=== PATIENT | female | born 1960 | race Caucasian/White ===

== ENCOUNTER 2017-11-21 07:30 | Day surgery (SDC) | payer BC, OTHER ==
[~2017-11-21 07:30] MED LIST: Lactated Ringers 1,000 ML IV SCH; Midazolam 1 MG/ML 2 ML SDV ONE; Propofol 200 MG/20 ML SDV ONE; Sodium Chloride 0.9% 10 ML Syringe FLUSH PRN; fentaNYL 100 MCG/2 ML SDV ONE
[2017-11-21] MEDS ORDERED: fentaNYL 100 MCG/2 ML SDV ONE (08:19)
[2017-11-21] MEDS ORDERED: Midazolam 1 MG/ML 2 ML SDV ONE (08:19)
[2017-11-21] MEDS ORDERED: Propofol 200 MG/20 ML SDV ONE (08:19)
--- NOTE | 2017-11-21 08:20 | PCM.HPR ---
H & P Addendum review - H & P Addendum Review Date of Original H & P: 11/07/17 Date Reviewed: 11/21/17 Time Reviewed: 08:05 Patient was Examined: No Changes
--- NOTE | 2017-11-21 08:51 | PCM.OPNOTE ---
- General Post-Op/Procedure Note Date of Surgery/Procedure: 11/21/17 Operative Procedure(s): Colonoscopy with polypectomy Findings: polyps Pre Op Diagnosis: FH Colon Polyps Post-Op Diagnosis: Same Anesthesia Technique: MAC Primary Surgeon: Aravind Ortiz Anesthesia Provider: Fidelina Medeiros Pathology: polyps Complications: None Condition: Good Free Text/Narrative:: Intake & Output 11/20/17 11/21/17 11/21/17 22:59 06:59 14:59 Intake Total 500 Balance 500
[2017-11-21 09:24] VITALS: BP 126/74
--- NOTE | 2017-11-21 12:12 | OR ---
Date of Procedure: 11/21/2017 PREOPERATIVE DIAGNOSIS: Family history of colon polyps. POSTOPERATIVE DIAGNOSIS: Colon and rectal polyps. PROCEDURE: Colonoscopy with polypectomy. ANESTHESIA: IV sedation. PROCEDURE: The patient was brought to the procedure room where she was placed on her left side and IV sedation administered. Digital rectal exam was performed which was normal. Colonoscope was inserted and advanced to the level of the cecum without difficulty. Cecal position was confirmed by identifying the appendiceal lumen and ileocecal valve. Prep was good and surfaces were well visualized. Upon withdrawing the scope, the ascending, transverse, and descending colon were normal in appearance. In the sigmoid colon at 30 cm, was an 8 mm pedunculated polyp removed with a cautery snare and retrieved in the polyp trap. In the rectum at 10 cm with a 10 mm sessile polyp that was also removed with a cautery snare and retrieved in the polyp trap. Retroflexion was normal. Air was removed and the scope withdrawn. The patient tolerated the procedure well and returned to recovery in stable condition. I will have the patient followup next week for review of pathology report. Polyps are obviously adenomatous and would recommend that she undergo a repeat colonoscopy again in 3 years. RALPH PHIPPS MD /[id number]
== END 2017-11-21 10:21 | disposition home or self-care (01) ==
LOC: LL.SDS 07:30
PROVIDERS: ATTEND Surgery
DX: Z12.11 Encounter for screening for malignant neoplasm of colon (principal); D12.5 Benign neoplasm of sigmoid colon; D12.8 Benign neoplasm of rectum; M47.896 Other spondylosis, lumbar region; E89.0 Postprocedural hypothyroidism; E66.9 Obesity, unspecified; Z68.41 Body mass index [BMI] 40.0-44.9, adult; F41.9 Anxiety disorder, unspecified; F32.9 Major depressive disorder, single episode, unspecified; Z79.899 Other long term (current) drug therapy; Z90.710 Acquired absence of both cervix and uterus; Z98.890 Other specified postprocedural states; Z87.891 Personal history of nicotine dependence; Z83.71 Family history of colonic polyps
CPT/HCPCS: 45385; J2250; J2704; J3010; J7120

== ENCOUNTER 2019-08-20 18:42 | Emergency (ER) | payer OTHER ==
[2019-08-20 18:55] VITALS: BP 115/84; PULSE 77
--- NOTE | 2019-08-20 19:38 | EDM.PDOC ---
ED HPI GENERAL MEDICAL PROBLEM - General Chief Complaint: Upper Extremity Injury/Pain Stated Complaint: right arm pain Time Seen by Provider: 08/20/19 19:10 Source of Information: Reports: Patient History Limitations: Reports: No Limitations - History of Present Illness INITIAL COMMENTS - FREE TEXT/NARRATIVE: Slipped and fell on the ice Landed on right wrist Pain and deformity in wrist Duration: Hour(s): Location: Reports: Upper Extremity, Right Quality: Reports: Throbbing Severity: Moderate Improves with: Reports: Immobilization Worsens with: Reports: Movement Context: Reports: Trauma Right Arm Pain Score (Numeric/FACES): 8 - Related Data Allergies Allergy/AdvReac Type Severity Reaction Status Date / Time No Known Allergies Allergy Verified 11/21/17 07:25 Home Meds: Home Meds Levothyroxine 125 mcg PO SA 04/20/16 [History] Sertraline [Zoloft] 100 mg PO BEDTIME 04/20/16 [History] Calcium Carb, Citrate/Vit D3 [Citracal + D ER] 1 tab PO DAILY 11/20/17 [History] Desoximetasone [Topicort 0.25% Crm] 15 gm TOP BID PRN 11/20/17 [History] Levothyroxine 112 mcg PO SUMOTUWETHFR 11/20/17 [History] Past Medical History HEENT History: Reports: None Cardiovascular History: Reports: None Respiratory History: Reports: None Gastrointestinal History: Reports: None Genitourinary History: Reports: None DIRECTOR NICU History: Reports: Other (See Below) Other DIRECTOR NICU History: Hystorectomy, LEEP, TUR BLADDER TUMOR Musculoskeletal History: Reports: Other (See Below) Other Musculoskeletal History: Degenerative Arthritis of the Lumbar spine Neurological History: Reports: None Psychiatric History: Reports: Anxiety Endocrine/Metabolic History: Reports: Other (See Below) Other Endocrine/Metabolic History: Goiter, Thyroid Nodules Hematologic History: Reports: None Immunologic History: Reports: None Oncologic (Cancer) History: Reports: Thyroid Dermatologic History: Reports: None - Past Surgical History Endocrine Surgical History: Reports: Thyroidectomy Social & Family History - Tobacco Use Smoking Status *Q: Never Smoker Second Hand Smoke Exposure: No - Caffeine Use Caffeine Use: Reports: None Caffeine Use Comment: Has coffee or pop 2-3x/week - Recreational Drug Use Recreational Drug Use: No Review of Systems - Review of Systems Review Of Systems: See Below Musculoskeletal: Reports: Joint Pain, Joint Swelling ED EXAM, GENERAL - Physical Exam Exam: See Below Exam Limited By: No Limitations General Appearance: Moderate Distress Extremities: Other (Right wrist with swelling and deformity Neurovascular exam intact cap refill < 3 sec) Course - Vital Signs Last Recorded V/S: Last Vital Signs Temp 98.3 F 08/20/19 18:54 Pulse 77 08/20/19 18:54 Resp 12 08/20/19 18:54 BP 115/84 08/20/19 18:54 Pulse Ox 99 08/20/19 18:54 - Orders/Labs/Meds Orders: Active Orders 24 hr Category Date Time Status Forearm 2V Rt [CR] Stat Exams 08/20/19 18:59 Taken - Re-Assessments/Exams Free Text/Narrative Re-Assessment/Exam: 08/20/19 19:35 D/W Dr Hunt On-call [facility] Will call pt in AM to schedule evaluation Ortho glass splint placed in ER by provider Neurovascular exam remains intact Departure - Departure Time of Disposition: 19:45 Disposition: Home, Self-Care 01 Clinical Impression: Fracture of radius Qualifiers: Encounter type: initial encounter Radius location: distal physis (incl. Salter- Gross) Fracture alignment: displaced Laterality: right Qualified Code(s): S59.201A - Unspecified physeal fracture of lower end of radius, right arm, initial encounter for closed fracture - Discharge Information *PRESCRIPTION DRUG MONITORING PROGRAM REVIEWED*: Not Applicable *COPY OF PRESCRIPTION DRUG MONITORING REPORT IN PATIENT LANI: Not Applicable Instructions: Wrist Fracture Treated With Immobilization, [id number] Referrals: Linette Ludwig PA-C [Primary Care Provider] - Additional Instructions: Dr Hunt's office will call patient in AM Rx Hydrocodone 1 pill every 4 to 6 hours as needed for pain Sepsis Event Note - Evaluation Sepsis Screening Result: No Definite Risk - Focused Exam Vital Signs: Vital Signs Temp Pulse Resp BP Pulse Ox 08/20/19 18:54 98.3 F 77 12 115/84 99 Date Exam was Performed: 08/20/19 Time Exam was Performed: 19:33 - My Orders Last 24 Hours: My Active Orders 08/20/19 18:59 Forearm 2V Rt [CR] Stat - Assessment/Plan Last 24 Hours: My Active Orders 08/20/19 18:59 Forearm 2V Rt [CR] Stat
== END 2019-08-20 19:50 | disposition home or self-care (01) ==
LOC: LL.ED 18:42
DX: S52.571A Other intraarticular fracture of lower end of right radius, initial encounter for closed fracture (principal); E07.9 Disorder of thyroid, unspecified; F41.9 Anxiety disorder, unspecified; Z79.899 Other long term (current) drug therapy; W00.0XXA Fall on same level due to ice and snow, initial encounter
CPT/HCPCS: 29125; 73090-RT; 99283-25

== ENCOUNTER 2021-02-16 07:55 | Day surgery (SDC) | payer OTHER ==
[~2021-02-16 07:55] MED LIST changes: -Lactated Ringers 1,000 ML IV SCH; -Midazolam 1 MG/ML 2 ML SDV ONE; -Propofol 200 MG/20 ML SDV ONE; -fentaNYL 100 MCG/2 ML SDV ONE
[2021-02-16] MEDS ORDERED: Midazolam 1 MG/ML 2 ML SDV ONE (08:29)
[2021-02-16] MEDS ORDERED: Propofol 200 MG/20 ML SDV ONE ×2 (08:30→08:45)
[2021-02-16] MEDS: Lactated Ringers 1,000 ML IV SCH (08:42)
--- NOTE | 2021-02-16 09:02 | PCM.PN ---
- General Info Date of Service: 02/16/21 - Review of Systems Systems Review Comment:: 60-year-old female referred for colonoscopy. She has a history of colon polyps. Her recent history and physical is reviewed and no significant changes are noted. I have discussed the proposed colonoscopy with the patient. Risks such as but not limited to bleeding and GI injury reviewed. Her questions were answered. She agrees to proceed. - Patient Data Vitals - Most Recent: Last Vital Signs Temp 98.1 F 02/16/21 08:40 Pulse 54 L 02/16/21 08:40 Resp 18 02/16/21 08:40 BP 115/70 02/16/21 08:40 Pulse Ox 95 02/16/21 08:40 Weight - Most Recent: 92.986 kg Med Orders - Current: Current Medications Lactated Ringer's (Ringers, Lactated) 1,000 mls @ 125 mls/hr IV ASDIRECTED CHRISTOPHER Last Admin: 02/16/21 08:42 Dose: 125 mls/hr Documented by: Sodium Chloride (Sodium Chloride 0.9% 10 Ml Syringe) 10 ml FLUSH ASDIRECTED PRN PRN Reason: Keep Vein Open Discontinued Medications Midazolam HCl (Midazolam 1 Mg/Ml 2 Ml Sdv) Confirm Administered Dose 2 mg .ROUTE .STK-MED ONE Stop: 02/16/21 08:30 Propofol (Propofol 200 Mg/20 Ml Sdv) Confirm Administered Dose 200 mg .ROUTE .STK-MED ONE Stop: 02/16/21 08:31 Propofol (Propofol 200 Mg/20 Ml Sdv) Confirm Administered Dose 200 mg .ROUTE .STK-MED ONE Stop: 02/16/21 08:46 Sepsis Event Note - Focused Exam Vital Signs: Vital Signs Temp Pulse Resp BP Pulse Ox 02/16/21 08:40 98.1 F 54 L 18 115/70 95 - Problem List Review Problem List Initiated/Reviewed/Updated: Yes - My Orders Last 24 Hours: My Active Orders 02/15/21 16:27 Resuscitation Status Routine 02/16/21 07:00 Patient Status [ADT] Routine Patient to Empty Bladder [RC] ASDIRECTED Peripheral IV Care [RC] . DIRECTED Verify Patient Consent Obtain [RC] ASDIRECTED Lactated Ringers [Ringers, Lactated] 1,000 ml IV ASDIRECTED Sodium Chloride 0.9% [Saline Flush] 10 ml FLUSH ASDIRECTED PRN Peripheral IV Insertion Adult [OM.PC] Routine 02/16/21 Breakfast Nothing Per Oral Diet [DIET] - Assessment Assessment:: History of colon polyps - Plan Plan:: Colonoscopy
--- NOTE | 2021-02-16 09:37 | PCM.OPNOTE ---
- General Post-Op/Procedure Note Date of Surgery/Procedure: 02/16/21 Operative Procedure(s): Colonoscopy with polypectomy Findings: Small transverse colon polyp Colon otherwise normal Pre Op Diagnosis: History of colon polyps Post-Op Diagnosis: Colon polyp Anesthesia Technique: MAC Primary Surgeon: Norman Lundberg Pathology: Colon polyp EBL in mLs: 0 Complications: None Condition: Good
--- NOTE | 2021-02-16 11:33 | OR ---
Date of Procedure: 02/16/2021 PREOPERATIVE DIAGNOSIS: History of colon polyps. POSTOPERATIVE DIAGNOSIS: Colon polyp. OPERATION PERFORMED: Colonoscopy with polypectomy. INDICATIONS FOR SURGERY: This 60-year-old female has a known history of colon polyps and comes today for surveillance colonoscopy. FINDINGS: The patient was noted to have a single small polyp in the transverse colon. This was sessile in configuration and 4 mm in diameter. The remainder of the colon and rectum appeared normal. DESCRIPTION OF PROCEDURE: The patient was taken to the operating room. She was given intravenous sedation, and with her in the left lateral decubitus position, digital rectal exam was performed showing no rectal masses. The Olympus colonoscope was inserted into the rectum. Retroflexed examination of the rectal canal was performed. The scope was then carefully advanced under direct visualization through the entire length of the colon until the cecum was reached. Cecal acquisition was confirmed by noting the normal internal cecal anatomy including the appendiceal orifice and the ileocecal valve. The ileocecal valve was cannulated and the terminal ileum examined and appeared normal. The scope was then slowly withdrawn sequentially re-examining the colonic segments. During withdrawal of the scope, a small polyp was identified and was removed with a cautery snare. This polyp was retrieved. Examination was then completed, and with no sign of any complication, the scope was removed. The patient was taken from the operating room in satisfactory condition. ESTIMATED BLOOD LOSS: 0. COMPLICATIONS: None. PROGNOSIS: Good. RALPH Lundberg MD /[id number]
[2021-02-16 13:53] VITALS: PULSE 51
[2021-02-16 13:54] VITALS: BP 112/76
--- OUTSIDE RECORDS SUMMARY | 2021-02-17 11:24 | XMSREPORT | Referral Summary ---
:1960 Author Organization [facility] s Address [address] [place] [address] [address] [place] [address] Care Team Providers Name Role Phone Gary Ludwig PA-C Primary Care Provider Gary Ludwig PA-C Attributed Provider Reason for Referral Transitions of Care (Routine) Status Reason Specialty Diagnoses / Referred By Referred To Procedures Contact Contact New Request Patient Diagnoses History of colon polyps Linette Ludwig, Health, [facility] [place], [address] [place] [id number] Phone: Fax: CC Prior Auth (Routine) Status Reason Specialty Diagnoses / Referred By Referred To Procedures Contact Contact NOT REQUIRED Diagnoses Lipoma of right lower extremity Linette Ludwig PA-C Procedures EXCISION SKIN LESION [address] [place] [address] Reason for Visit Reason Comments Mass right thigh Results Encounter Details Date Type Department Care Team Description 01/30/2021 Office Visit [facility] Linette Ludwig, Lipoma of ri ght lower extremity (Primary Dx); [facility] Mixed hyperlipidemia; [address] [place] of [place] [address] [place] [id number] Allergies No Known Active Allergiesdocumented as of this encounter (statuses as of 02/15/2021) Medications Medication Sig Dispensed Refills Start Date End Date Status calcium citrate-vitamin Take 1 tablet by 0 Active D (CITRACAL + VIT D) mouth 1 time a 315 mg-200 unit TABS day with breakfast. sertraline (ZOLOFT) 100 Take 1 tablet 90 tablet 3 07/27/2020 Active mg tabletIndications: (100 mg) by mouth Anxiety every night at bedtime levothyroxine 112 mcg TAKE 1 TABLET 12 tablet 3 07/27/2020 Active tabletIndications: (112MCG) BY MOUTH Postoperative 6 DAYS A WEEK. hypothyroidism Saturday through Sat. levothyroxine 125 mcg 125 mcg 1 day a 71 tablet 3 07/27/2020 Active tabletIndications: week Takes on Postoperative Saturday hypothyroidism desoximetasone Apply to affected 60 g 1 07/27/2020 Active (TOPICORT) 0.25 % area 2 times a creamIndications: Other day atopic dermatitis triamcinolone acetonide Apply topically 2 45 g 1 07/27/19 21 Active (KENALOG,ARISTOCORT) times a day 0.1 % creamIndications: Other atopic dermatitis documented as of this encounter (statuses as of 02/15/2021) Active Problems Problem Noted Date Mixed hyperlipidemia 02/01/2021 Pure hypercholesterolemia 07/30/2019 Postoperative hypothyroidism 07/23/2016 Menopause 07/23/2016 Obesity, morbid, BMI 40.0-49.9 10/04/2015 Mixed stress and urge urinary incontinence 02/25/2015 Hypothyroidism, postsurgical 01/14/2015 Anxiety 06/30/2014 documented as of this encounter (statuses as of 02/15/2021) Resolved Problems Problem Noted Date Resolved Date Multiple thyroid nodules 06/30/2014 01/14/2015 Overview: Large cold left thyroid nodule biopsied benign 2008 FINAL DIAGNOSIS: Nodule, left thyroid, fine needle aspira tion cytology: - consistent with benign thyroid nodule. - occasional follicular clusters, occasi onal colloid. Goiter 07/29/2008 01/14/2015 Dysplasia of cervix 06/30/2014 documented as of this encounter (statuses as of 02/15/2021) Immunizations Name Administration Dates Next Due FLU VACCINE MULTIDOSE 04/23/2018 0.5mL(6MO+Fluzone/Flulaval,Afluria) FLU VACCINE SINGLE DOSE 05/25/2016 0.5mL(6MO+Fluzone/Flulaval/Fluarix,3YR+Afluria) INFLUENZA MULTIDOSE 0.5ML 6 MONTHS AND UP 06/23/2015 INFLUENZA SINGLE DOSE 0.5ML 6 MONTHS AND UP 05/25/2019, 04/07 Pfizer COVID-19 Vaccine 10/12/2020, 09/21/2020 Pneumococcal Polysaccharide PPSV23 03/08/2010 TDAP 04/20/2016 Tetanus Toxoid,not adsorbed 02/05/2007 Zoster Live(Zostavax) 01/02/2016 Zoster Recombinant (Shingrix) 04/27/2020, 12/21/2019 documented as of this encounter Social History Tobacco Use Types Packs/Day Years Used Date Former Smoker Cigarettes 0.5 20 Quit: 05/27/20 14 Smokeless Tobacco: Never Used Alcohol Use Standard Drinks/Week Comments Yes 4 (1 standard drink = 0.6 oz pure alcoho l) Alcohol Habits Answer Date Recorded How often do you have a drink containing alcohol? 2-3 times a week 08/01/2020 How many drinks containing alcohol do you have on a 1 or 2 08/01/2020 typical day when you are drinking? How often do you have six or more drinks on one Never 08/01/2020 occasion? Comment: Not asked Sex Assigned at Date Recorded Not on file documented as of this encounter Last Filed Vital Signs Vital Sign Reading Time Taken Comments Blood Pressure 112/66 01/30/2021 9:30 AM CDT Pulse 71 01/30/2021 9:30 AM CDT Temperature 36.2 C (97.1 F) 01/30/2021 9:30 AM CDT Respiratory Rate 16 01/30/2021 9:30 AM CDT Oxygen Saturation 97% 01/30/2021 9:30 AM CDT Inhaled Oxygen Concentration - - Weight 94.7 kg (208 lb 11.2 oz) 01/30/2021 9:30 AM CDT Height 170.2 cm (5' 7") 01/30/2021 9:30 AM CDT Body Mass Index 32.69 01/30/2021 9:30 AM CDT documented in this encounter Functional Status Functional Status Response Date of Assessment Is the person deaf or does he/she have serious difficulty No 08/26/2019 hearing? Is this person blind or does he/she have difficulty No 08/26/2019 seeing even when wearing glasses? Do you have difficulty with walking, balance, climbing No 08/26/2019 stairs, or had a fall in the last 3 months? Does the patient have difficulty dressing or bathing? No 10/26/2014 Because of a physical, mental, or emotional condition; No 10/26/2014 does this person have difficulty doing errands alone such as visiting a doctor's office or shopping? Cognitive Status Response Date of Assessment Because of a physical, mental, or emotional condition; No 10/26/2014 does this person have serious difficulty concentrating, remembering, or making decisions? documented as of this encounter Progress Notes Linette Ludwig PA-C - 01/30/2021 9:50 AM CDT Images from the original note were not included. Assessment / Plan Lipoma of right lower extremity - EXCISION SKIN LESION EXCISION OF LIPOMA: -Treatment options reviewed with patient. She prefers removal of one of the lipomas today. -Risks, potential complications discussed. -Verbalizes understanding and consent to this today. -Area was cleansed with alcohol and chloraprep. Site anesthetized with lidocaine 1% withepinephrine. [id number] EXP [id number]. 15 blade scalpel was used to make an incision overlying the lipoma. Undermined without difficulty. Sterile procedure was used. Bleeding minimal and well controlled. Lipoma removed in its entirety. Saline irrigation to ensure complete extraction. 7 sutures were placed in each site, using 5-0 vicryl, to maintain hemostasis. The wound was dressed with vaseline and a pressure, water proof bandage. She declines sending the specimen for pathology review. -Wound cares and signs of infection discussed. -RTO in 2 days for bandage change and 7-10 days for suture removal. -Encouraged to contact me with any questions or concerns. HLD The 10-year ASCVD risk score (Bebe DIANE Jr. et al., 2013) is: 2% Values used to calculate the score: Age: 60 years Sex: Female Is Non- : No Diabetic: No Tobacco smoker: No Systolic Blood Pressure: 112 mmHg Is BP treated: No HDL Cholesterol: 64 mg/dL Total Cholesterol: 223 mg/dL -Diet and lifestyle modifications were discussed with the patient and a follow up plan is in place. Return if symptoms worsen or fail to improve. HPI / History / ROS Sonia is a 60 yo female who presents to the clinic to review recent lab results along with some skin concerns. Pt with a h/o of high HLD. She currently doesn't take any medications, considering her ASCVD score of 2%. No significant FH of heart disease. Lab Results Component Value Date CHOLESTEROL 223 (H) 01/23/2021 HDLCHOL 64 01/23/2021 LDL 138 (H) 01/23/2021 TRIGLYCERIDE 105 01/23/2021 The 10-year ASCVD risk score (Bebe DIANE Jr. et al., 2013) is: 2% Values used to calculate the score: Age: 60 years Sex: Female Is Non- : No Diabetic: No Tobacco smoker: No Systolic Blood Pressure: 112 mmHg Is BP treated: No HDL Cholesterol: 64 mg/dL Total Cholesterol: 223 mg/dL Lab Results Component Value Date GLUCOSE 76 01/23/2021 BUN 21 01/23/2021 CREATSERUM 0.77 01/23/2021 BCRATIO 27.3 (H) 01/23/2021 NA 142 01/23/2021 POTASSIUM 4.6 01/23/2021 CL 109 01/23/2021 CO2 25 01/23/2021 CA 9.8 01/23/2021 PROTEINTOTAL 6.9 01/23/2021 ALBUMIN 4.0 01/23/2021 ALKPHOS 55 01/23/2021 AST 18 01/23/2021 ALT 18 01/23/2021 BILITOTAL 0.2 01/23/2021 EGFR 77 01/23/2021 Also with a h/o hypothyroidism. WC with levo 112 mcg 6x/week and 125 mcg 1 day/week. She reports gradual, recent intentional weight loss. She denies hot/cold intolerance, appetite/thirst changes. Lab Results Component Value Date TSH 1.33 01/23/2021 TSH 2.54 06/09/2020 TSH 2.49 01/22/2020 She has concerns of two skin lumps on the side of her R hip. She first noticed these lumps roughly 6months ago. She states they are firm and mobile, but not painful. She has a hx of cysts that have been removed in the past in July,. She also has a hx of lipomas. She denies F/C, trauma, tenderness, redness, warmth, skin changes. She also has concerns of "multiple tiny lumps" along the side of her R leg. She noticed these tiny lumps around the same time as the larger lumps on her hip. She denies F/C, trauma, pain, redness, warmth, skin changes. She has no other concerns at this time. Medications Outpatient Medications Prior to Visit Medication Sig Dispense Refill sertraline (ZOLOFT) 100 mg tablet Take 1 tablet (100 mg) by mouth every night at bedtime 90 tablet 3 levothyroxine 112 mcg tablet TAKE 1 TABLET (112MCG) BY MOUTH 6 DAYS A WEEK. Saturday through 12 tablet 3 levothyroxine 125 mcg tablet 125 mcg 1 day a week Takes on Saturday 71 tablet 3 desoximetasone (TOPICORT) 0.25 % cream Apply to affected area 2 times a day 60 g 1 triamcinolone acetonide (KENALOG,ARISTOCORT) 0.1 % cream Apply topically 2 times a day 45 g 1 calcium citrate-vitamin D (CITRACAL + VIT D) 315 mg-200 unit TABS Take 1 tablet by mouth 1 time a day with breakfast. No facility-administered medications prior to visit. 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 Endocrine: Negative for cold intolerance, heat intolerance, polydipsia, polyphagia and polyuria. Skin: See HPI Physical / Results BP 112/66 Pulse 71 Temp 97.1 F (36.2 C) (Tympanic) Resp 16 Ht 1.702 m (5' 7") Wt 94.7 kg (208 lb 11.2 oz) SpO2 97% BMI 32.69 kg/m2|| Physical Exam Vitals and nursing note reviewed. Constitutional: General: She is not in acute distress. Appearance: She is well-developed. HENT: Right Ear: Tympanic membrane and ear canal normal. Left Ear: Tympanic membrane and ear canal normal. Eyes: Conjunctiva/sclera: Conjunctivae normal. Pupils: Pupils are equal, round, and reactive to light. Cardiovascular: Rate and Rhythm: Normal rate and regular rhythm. Heart sounds: Normal heart sounds. Pulmonary: Effort: Pulmonary effort is normal. Breath sounds: Normal breath sounds. Musculoskeletal: Cervical back: Normal range of motion and neck supple. Skin: General: Skin is warm and dry. Neurological: Mental Status: She is alert and oriented to person, place, and time. Patient communicated understanding of plan and education received. Linette ROSE-C documented in this encounter Plan of Treatment Name Type Priority Associated Diagnoses Order [facility] CLINIC REFERRAL Referral Routine History of colon polyps O rdered: 02/15/2021 ENDOSCOPY NON ONE CHART documented as of this encounter Implants Implanted Type Area President Educational Institution Device Shelf Model / Identifier Expiration Serial / Date Lot Pin Btrs Stardr1.8x22mm N Ea1 - [id number] Ortho Right: [employer]PUY / Implanted: 08/26/2019 by Paulino Garcia MD at [facility] (Quantity not on file) Other [employer] / [employer] Troc [id number] N 292.12 Tp10/Ea1 - [id number] Ortho Right: J[employer] DEPUY 292.12 / Implanted: 08/26/2019 by Paulino Garcia MD at [facility] (Quantity not on file) Other [employer] / Pin Btrs Stardr1.8x22mm N Ea1 - [id number] Ortho Right: J[employer] DEPUY 02.210.092 / Implanted: 08/26/2019 by Paulino Garcia MD at [facility] (Quantity not on file) Other [employer] / Pin Btrs Stardr1.8x24mm N .094 Ea1 - [id number] Ortho Right: J[employer] DEPUY / Implanted: 08/26/2019 by Paulino Garcia MD at [facility] (Quantity not on file) Other [employer] / Screw Mg T8 Stardr 2.7x14mm N 202.874 Ea1 - [id number] Ortho Right: J[employer] DEPUY 202.874 / Implanted: 08/26/2019 by Paulino Garcia MD at [facility] (Quantity not on file) Other [employer] / Screw Mg T8 Stardr 2.7x16mm N 202.876 Ea1 - [id number] Ortho Right: J[employer] DEPUY 202.876 / Implanted: 08/26/2019 by Paulino Garcia MD at [facility] (Quantity not on file) Other [employer] / Screw Mg T8 Stardr 2.7x16mm N 202.876 Ea1 - [id number] Ortho Right: J[employer] DEPUY 202.876 / Implanted: 08/26/2019 by Paulino Garcia MD at [facility] (Quantity not on file) Other [employer] / Plate Dist Rad 2col Rt 7/3hl N 111.730 Ea1 - [id number] Ortho Right: J[employer] DEPUY 730 / Implanted: 08/26/2019 by Paulino Garcia MD at [facility] (Quantity not on file) Other [employer] / Pin Btrs Stardr1.8x20mm N .090 Ea1 - [id number] Ortho Right: J[employer]J DEPUY 0 / Implanted: 08/26/2019 by Paulino Garcia MD at [facility] (Quantity not on file) Other [employer] / Pin Btrs Stardr1.8x18mm N .088 Ea1 - [id number] Ortho Right: J[employer] DEPUY / Implanted: 08/26/2019 by Paulino Garcia MD at [facility] (Quantity not on file) Other [employer] / documented as of this encounter Procedures Procedure Name Priority Date/Time Associated Diagnosis Comme nts EXCISION SKIN LESION Routine 02/01/2021 3:04 PM CDT Lipoma of right lower extremity documented in this encounter Visit Diagnoses Diagnosis Lipoma of right lower extremity - Primar y Mixed hyperlipidemia History of colon polyps Personal history of colonic polyps documented in this encounter
== END 2021-02-16 10:40 | disposition home or self-care (01) ==
LOC: LL.SDS 07:55
PROVIDERS: ATTEND Surgery
DX: Z12.11 Encounter for screening for malignant neoplasm of colon (principal); D12.3 Benign neoplasm of transverse colon; D17.23 Benign lipomatous neoplasm of skin and subcutaneous tissue of right leg; E78.2 Mixed hyperlipidemia; E78.5 Hyperlipidemia, unspecified; E03.9 Hypothyroidism, unspecified; Z83.71 Family history of colonic polyps; Z86.010 Personal history of colon polyps; Z87.891 Personal history of nicotine dependence; Z79.890 Hormone replacement therapy; Z79.899 Other long term (current) drug therapy
CPT/HCPCS: 00812; J7120